=== PATIENT | male | born 1995 | race African-American/Black ===

== ENCOUNTER 2017-07-06 11:57 | Emergency (ER) | payer SELFPAY ==
[~2017-07-06] VITALS: Ht 185.4 cm; Wt 70.3 kg
[2017-07-06 12:26] VITALS: BP 116/70
[2017-07-06] MEDS ORDERED: Azithromycin 250mg tab ORAL ONE (12:30)
[2017-07-06] MEDS ORDERED: Lidocaine 1% MPF 10mg/ml 5ml INJ ONE (12:30)
--- NOTE | 2017-07-06 13:04 | Emergency Room Report ---
History of Present Illness General Chief Complaint: General Complaint Source: Patient Present Illness HPI 22-year-old male presents emergency department requesting treatment for Chlamydia/gonorrhea. Patient states that his girlfriend who is was just informed today and treated for these infections. Patient states that he has been having intermittent discharge 5 months he denies fevers, chills, genital lesions, swollen tender lymph nodes, joint pain, eye symptoms, dysuria, urinary frequency or hematuria. Patient denies abdominal pain,or testicular pain or swelling. Denies history of STDs in the past. Denies pain at this time. Allergies: Coded Allergies: No Known Allergies (Unverified , 07/06/17) Patient History Past Medical History: see triage record Past Surgical History: none Pertinent Family History: none Immunizations: UTD Reviewed Nursing Documentation: PMH: Agreed; PSxH: Agreed Nursing Documentation-PMH Past Medical History: No Stated History Review of Systems All Other Systems: negative except mentioned in HPI Physical Exam Vital Signs Date Time Temp Pulse Resp B/P (MAP) Pulse Ox O2 Delivery O2 Flow Rate FiO2 07/06/17 12:22 98.0 70 16 116/70 99 Room Air 98.1 Sp02 EP Interpretation: reviewed, normal General Appearance: no apparent distress, alert, GCS 15, non-toxic Head: normocephalic, atraumatic ENT: hearing grossly normal, normal voice Neck: full range of motion Respiratory: lungs clear, normal breath sounds, speaking full sentences Cardiovascular #1: regular rate, rhythm, no edema Gastrointestinal: normal bowel sounds, non tender, soft Rectal: deferred Genitourinary: normal inspection, no CVA tenderness, other - genital exam deferred by pt. Musculoskeletal: back normal, gait/station normal, normal range of motion Neurologic: alert, oriented x3, responsive, motor strength/tone normal, sensory intact, speech normal, grossly normal Psychiatric: judgement/insight normal Skin: normal color, no rash, warm/dry, well hydrated Lymphatic: no adenopathy - no palpable inguinal LAD Medical Decision Making PA Attestation Dr. Stiles is my supervising Physician whom patient management has been discussed with. Diagnostic Impression: Primary Impression: Contact with or exposure to venereal diseases ER Course 22-year-old male presents emergency department requesting treatment for Chlamydia/gonorrhea. Patient states that his girlfriend who is was just informed today and treated for these infections. Patient states that he has been having intermittent discharge 5 months he denies fevers, chills, genital lesions, swollen tender lymph nodes, joint pain, eye symptoms, dysuria, urinary frequency or hematuria. Patient denies abdominal pain,or testicular pain or swelling. Denies history of STDs in the past. Denies pain at this time. Ddx considered but are not limited to UTi , Urethritis, LGV, STI, Stone, Cystitis, prostatitis Vital signs: are WNL, pt. is afebrile H&PE are most consistent with Urethritis ORDERS: - none required pt. to be treated prophylactically. ED INTERVENTIONS: -250mg Rocephin IM -Azithromycin 1g PO DISCHARGE: At this time pt. is stable for d/c to home. Will provide printed patient care instructions, and any necessary prescriptions. Care plan and follow up instructions have been discussed with the patient prior to discharge. Last Vital Signs Date Time Temp Pulse Resp B/P (MAP) Pulse Ox O2 Delivery O2 Flow Rate FiO2 07/06/17 12:26 98.1 70 16 116/70 99 Room Air 98.1 Disposition: HOME, SELF-CARE Condition: Stable Referrals: NOT CHOSEN [facility]/MD,REFERRING (PCP) Patient Instructions: Urethritis, Adult Additional Instructions: Take medications as directed. Follow up with a Primary Care Provider in 3-5 days, even if your symptoms have resolved. --Please review list of primary care clinics, if you do not already have a primary care provider Return sooner to ED if new symptoms occur, or current symptoms become worse. - Please note that this Emergency Department Report was dictated using [employer] technology software, occasionally this can lead to erroneous entry secondary to interpretation by the dictation equipment. Reena Gambino July 06, 2017 13:04
[2017-07-06 13:15] VITALS: BP 116/70
== END 2017-07-06 13:23 | disposition home or self-care (01) ==
LOC: EMR 12:39
DX: R36.9 Urethral discharge, unspecified (principal); Z20.2 Contact with and (suspected) exposure to infections with a predominantly sexual mode of transmission
CPT/HCPCS: 96372; 99283; J0696

== ENCOUNTER 2020-03-17 19:04 | Emergency (ER) | payer SELFPAY ==
[~2020-03-17] VITALS: Ht 182.9 cm; Wt 73.5 kg
[2020-03-17 20:25] VITALS: BP 112/78
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
--- NOTE | 2020-03-17 20:42 | Diagnostic Imaging Report ---
EXAM: CT Maxillofacial Without Intravenous Contrast CLINICAL HISTORY: TRAUMA TECHNIQUE: Axial computed tomography images of the face without intravenous contrast. CTDI is 68.7 mGy and DLP is 1464.9 mGy-cm. One or more of the following dose reduction techniques were used: automated exposure control, adjustment of the mA and/or kV according to patient size, use of iterative reconstruction technique. COMPARISON: None. FINDINGS: Bones/joints: No acute fracture. Soft tissues: There is infraorbital soft tissue swelling extending to the anterior wall of the bilateral maxillary sinus, right more than left and right nasal bone. There is mild swelling overlying the right periorbital region extending to the right frontal bone. Orbits: Bilateral globes and intraconal region of the orbits are normal. Sinuses: Bilateral paranasal sinuses and mastoids are clear. No air- fluid levels. IMPRESSION: Soft tissue swelling as described. No distinct facial bone fracture visualized.
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
[2020-03-17] MEDS ORDERED: Tetanus/Diptheria/Pertussis IM ONE (21:00)
--- NOTE | 2020-03-17 22:29 | Emergency Room Report ---
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 COVID-19 Screening: Negative COVID-19 COVID-19 Testing Source: na Nursing Documentation-PMH Hx Cardiac Problems: No Hx Hypertension: No Hx Pacemaker: No Hx Asthma: No Hx COPD: No Hx Diabetes: No Hx Cancer: No Hx Gastrointestinal Problems: No Hx Dialysis: No History Of Psychiatric Problem: No Hx Neurological Problems: No Hx Cerebrovascular Accident: No Hx Seizures: No Physical Exam Vital Signs Date Time Temp Pulse Resp B/P (MAP) Pulse Ox O2 Delivery O2 Flow Rate FiO2 03/17/20 19:34 97.9 78 18 112/78 (89) 98 Room Air Medical Decision Making Diagnostic Impression: Primary Impression: Facial contusion Additional Impressions: Abrasion of face Back contusion Shoulder contusion Back strain Multiple abrasions CT/MRI/US Diagnostic Results CT/MRI/US Diagnostic Results : Imaging Test Ordered: CT head, CT orbits, CT max/facial Impression No acute bony abnl. Last Vital Signs Date Time Temp Pulse Resp B/P (MAP) Pulse Ox O2 Delivery O2 Flow Rate FiO2 03/17/20 20:25 97.9 72 18 112/78 98 Room Air Disposition: HOME, SELF-CARE Condition: Improved Referrals: NOT CHOSEN [facility]/,REFERRING (PCP) Jeanie Lindquist DO Mar 17, 2020 22:29
--- NOTE | 2020-03-17 23:04 | NUR ---
ED Nurse Note: pt a&ox3, vs wnl, pt denies any pain at the moment, just discomfort. pt shows no signs of distress at this moment. breathing without difficulties on RA. will continue to monitor and await dispo.
[2020-03-17] MEDS ORDERED: AUGMENTIN 875-1 EAC1 ORAL (23:50)
[2020-03-17] MEDS ORDERED: ACETAMINOPHEN-1 EAC1 ORAL (23:50)
[2020-03-17] MEDS ORDERED: CYCLOBENZAPRINE10 MG ORAL (23:50)
[2020-03-17 23:54] VITALS: BP 112/78
--- NOTE | 2020-03-17 23:55 | NUR ---
ED Nurse Note: Pt cleared by health care Provider for discharge. DC instructions/prescription was given and explained to pt and verbalized understanding of teachings. All medical deviecs such as ID band removed. Pt is AAO x4, ambulatory and left with all personal belongings.
== END 2020-03-17 23:55 | disposition home or self-care (01) ==
LOC: EMR 19:55
DX: S00.83XA Contusion of other part of head, initial encounter (principal); S40.019A Contusion of unspecified shoulder, initial encounter; T14.8XXA Other injury of unspecified body region, initial encounter; S39.012A Strain of muscle, fascia and tendon of lower back, initial encounter; X58.XXXA Exposure to other specified factors, initial encounter; Y92.9 Unspecified place or not applicable; Z23 Encounter for immunization
CPT/HCPCS: 70450; 70480; 70486; 90471; 90715; 99284